=== PATIENT | male | born 1950 | race Caucasian/White ===

== ENCOUNTER 2021-07-29 11:37 | Emergency (ER) | payer OTHER ==
[2021-07-29 11:49] VITALS: BMI 25.8
[2021-07-29] MEDS ORDERED: SOTROVIMAB 500 MG in SODIUM CHLORIDE 100 ML IVPB ONE (11:58)
[2021-07-29 14:06] VITALS: TEMP 98.2
[2021-07-29 14:18] VITALS: BP 138/83; PULSE 74
== END 2021-07-29 14:20 | disposition home or self-care (01) ==
LOC: JCOVINFU 11:37
DX: U07.1 COVID-19 (principal)
CPT/HCPCS: 99284-25; M0247; Q0247